=== PATIENT | male | born 1940 | race Caucasian/White ===

== ENCOUNTER 2019-10-27 15:48 | Emergency (ER) | payer MEDICARE, MEDICAID ==
[~2019-10-27] VITALS: Ht 170.2 cm; Wt 81.8 kg
[2019-10-27 17:55] LABS: BASOPHILS # (AUTO) 0.1 X10'3 (0-0.2); EOSINOPHILS # (AUTO) 0.3 X10'3 (0-0.9); EOSINOPHILS % (AUTO) 2.6 % (0-6); HEMATOCRIT 39.8 % (42.0-52.0); HEMOGLOBIN 13.2 g/dl (14.0-17.9); LYMPHOCYTES # (AUTO) 1.8 X10'3 (1.1-4.8); LYMPHOCYTES % (AUTO) 16.3 % (21-51); MEAN CORPUSCULAR HEMOGLOBIN 32.1 PG (27.0-31.0); MEAN CORPUSCULAR HGB CONC 33.3 g/dL (33.0-36.5); MEAN CORPUSCULAR VOLUME 96.3 FL (78-98); MEAN PLATELET VOLUME 8.1 FL (7.4-10.4); MONOCYTES # (AUTO) 0.7 X10'3 (0-0.9); MONOCYTES % (AUTO) 6.6 % (2-12); NEUTROPHILS % (AUTO) 73.5 % (42-75); PLATELET COUNT 248 X10'3 (140-440); RED BLOOD COUNT 4.13 X10'6 (4.70-6.10); RED CELL DISTRIBUTION WIDTH 12.8 % (11.5-14.5); WHITE BLOOD COUNT 10.9 X10'3 (4.5-11.0)
[2019-10-27 18:16] LABS: ALANINE AMINOTRANSFERASE 49 U/L (12-78); ALBUMIN 3.6 G/DL (3.4-5.0); ALBUMIN/GLOBULIN RATIO 0.9 (1.1-1.5); ALKALINE PHOSPHATASE 79 IU/L (46-116); ANION GAP 12 (8-16); ASPARTATE AMINO TRANSFERASE 31 U/L (10-37); BILIRUBIN,TOTAL 0.3 MG/DL (0.1-1.0); BLOOD UREA NITROGEN 17 MG/DL (7-18); BUN/CREATININE RATIO 16.8 (5.4-32.0); C-REACTIVE PROTEIN 1.65 MG/DL (0.0-0.5); CHLORIDE 104 MMOL/L (99-107); CREATININE 1.01 MG/DL (0.60-1.10); GLUCOSE 140 MG/DL (70-104); LACTATE DEHYDROGENASE 160 U/L (85-227); POTASSIUM 4.2 MMOL/L (3.5-5.1); SODIUM 141 MMOL/L (135-145); TOTAL CARBON DIOXIDE 25.2 MMOL/L (24-32); TOTAL PROTEIN 7.4 G/DL (6.4-8.2); eGFR 71 ML/MIN
[2019-10-27 19:29] LABS: CLARITY,URINE CLOUDY (Clear); COLOR,URINE YELLOW (Yellow); GLUCOSE, URINE NEGATIVE (Neg); KETONES,URINE 15 mg/dl (Neg); LEUKOCYTE ESTERASE ,URINE SMALL (Neg); NITRITES, URINE POSITIVE (Neg); OCCULT BLOOD,URINE LARGE (Neg); PROTEIN,URINE TRACE mg/dl (Neg); UROBILINOGEN,URINE 0.2 E.U/dL (0.2-1.0)
[2019-10-27 19:30] LABS: UA COLLECTION TYPE FOLEY CATH
[2019-10-27 19:34] LABS: BACTERIA,URINE 4+ /HPF (Neg); RBC,URINE 20-50 /HPF (0-2); SQUAMOUS EPITHELIAL CELL,UR FEW /LPF (FEW); WBC,URINE 50-100 /HPF (0-4)
[2019-10-27 21:17] VITALS: BP 170/84
== END 2019-10-27 21:05 | disposition home or self-care (01) ==
LOC: ER 15:48
DX: S31.20XA Unspecified open wound of penis, initial encounter (principal); N36.0 Urethral fistula; E11.65 Type 2 diabetes mellitus with hyperglycemia; R22.9 Localized swelling, mass and lump, unspecified; I10 Essential (primary) hypertension; X58.XXXA Exposure to other specified factors, initial encounter; Y93.89 Activity, other specified; Y92.89 Other specified places as the place of occurrence of the external cause; Y99.8 Other external cause status
CPT/HCPCS: 36415; 51702; 80053; 81001; 83605; 83615; 85025; 85651; 86140; 99285

== ENCOUNTER 2019-11-06 12:48 | Emergency (ER) | payer MEDICARE, MEDICAID ==
[~2019-11-06] VITALS: Ht 177.8 cm; Wt 81.8 kg
--- NOTE | 2019-11-06 14:29 | NUR ---
pt bladder scanned [address] almanzar as per md omar drake working on guide wire and catheter.
--- NOTE | 2019-11-06 16:16 | NUR ---
pt waiting for the dr as dr almanzar was busy with the code .
[2019-11-06 18:38] VITALS: BP 162/82
== END 2019-11-06 18:52 | disposition home or self-care (01) ==
LOC: ER 12:49
DX: T83.9XXA Unspecified complication of genitourinary prosthetic device, implant and graft, initial encounter (principal); I10 Essential (primary) hypertension; E11.9 Type 2 diabetes mellitus without complications
CPT/HCPCS: 51702; 99284; 99285

== ENCOUNTER 2019-11-19 08:54 | Emergency (ER) | payer MEDICARE, MEDICAID ==
[~2019-11-19] VITALS: Ht 175.3 cm; Wt 82.0 kg
[2019-11-19 10:49] VITALS: BP 164/78
--- NOTE | 2019-11-19 10:50 | NUR ---
sarah irragated with 50ml NS. able to drain 500ml urine out of sarah after.
== END 2019-11-19 11:16 | disposition home or self-care (01) ==
LOC: ER 08:55
DX: T83.098A Other mechanical complication of other urinary catheter, initial encounter (principal); I10 Essential (primary) hypertension; E11.9 Type 2 diabetes mellitus without complications; Z60.2 Problems related to living alone
CPT/HCPCS: 51700; 99284

== ENCOUNTER 2019-11-19 18:37 | Emergency (ER) | payer MEDICARE, MEDICAID ==
[~2019-11-19] VITALS: Ht 175.3 cm; Wt 81.8 kg
[2019-11-19 18:44] VITALS: BP 198/60
--- NOTE | 2019-11-19 19:12 | NUR ---
Dr. carroll was made aware of the issue of patient's "clogged" indwelling catheter. agreed to see patient in ED 2
--- NOTE | 2019-11-19 19:38 | NUR ---
Per Dr. humphreys. prexisting sarah was flushed with a return of sediment and approx 500 ml of urine.
== END 2019-11-19 19:49 | disposition home or self-care (01) ==
LOC: ER 18:37
DX: L98.498 Non-pressure chronic ulcer of skin of other sites with other specified severity (principal); R33.9 Retention of urine, unspecified; R22.9 Localized swelling, mass and lump, unspecified; G82.20 Paraplegia, unspecified; I10 Essential (primary) hypertension; E11.9 Type 2 diabetes mellitus without complications; Z60.2 Problems related to living alone
CPT/HCPCS: 51702; 99284

== ENCOUNTER 2019-11-24 06:04 | Emergency (ER) | payer MEDICARE, MEDICAID ==
[~2019-11-24] VITALS: Ht 175.3 cm; Wt 85.0 kg
--- NOTE | 2019-11-24 07:15 | NUR ---
unable to irrigate f/c, dr zarco made aware. consulted with dr. humphreys and gave orders to change out f/c.
[2019-11-24 08:49] LABS: CLARITY,URINE CLEAR (Clear); COLOR,URINE STRAW (Yellow); GLUCOSE, URINE NEGATIVE (Neg); KETONES,URINE NEGATIVE (Neg); LEUKOCYTE ESTERASE ,URINE SMALL (Neg); NITRITES, URINE NEGATIVE (Neg); OCCULT BLOOD,URINE SMALL (Neg); PROTEIN,URINE 100 mg/dl (Neg); UROBILINOGEN,URINE 0.2 E.U/dL (0.2-1.0)
[2019-11-24 08:50] LABS: UA COLLECTION TYPE STRAIGHT CATH
[2019-11-24 08:56] LABS: BACTERIA,URINE 2+ /HPF (Neg); RBC,URINE 0-2 /HPF (0-2); SQUAMOUS EPITHELIAL CELL,UR FEW /LPF (FEW)
[2019-11-24] MEDS ORDERED: CefTRIAXone 1000mg IM Kit (w/lidocaine diluent) IM ONE (09:50)
--- NOTE | 2019-11-24 09:50 | NUR ---
PT AWARE OF URINE OUTPUT OF AROUND 450ML. THE PT STATES THAT THAT IS A LARGE AMOUNT FOR HIM. PT DRESSED AND HELPED INTO HIS WHEELCHAIR. MD AWARE OF BLADDER SCANNER RESULTS. PT STATES HE IS READY TO GO HOME.
[2019-11-24] MEDS ORDERED: CEPH250T PO (09:54)
[2019-11-24 10:08] VITALS: BP 157/72
== END 2019-11-24 10:24 | disposition home or self-care (01) ==
LOC: ER 06:05
DX: T83.098A Other mechanical complication of other urinary catheter, initial encounter (principal); N13.9 Obstructive and reflux uropathy, unspecified; N39.0 Urinary tract infection, site not specified; G82.20 Paraplegia, unspecified; I10 Essential (primary) hypertension; E11.9 Type 2 diabetes mellitus without complications; Z60.2 Problems related to living alone; Z79.2 Long term (current) use of antibiotics; Y84.6 Urinary catheterization as the cause of abnormal reaction of the patient, or of later complication, without mention of misadventure at the time of the procedure; Y92.89 Other specified places as the place of occurrence of the external cause
CPT/HCPCS: 51702; 81001; 87077; 87088; 87186; 96372; 99284; J0696

== ENCOUNTER 2019-12-19 03:56 | Emergency (ER) | payer MEDICARE, MEDICAID ==
[~2019-12-19] VITALS: Ht 175.3 cm; Wt 79.5 kg
[2019-12-19] MEDS ORDERED: LIDOcaine 2% 10ml TOPICAL JELLY (Urojet) TP ONE (04:05)
[2019-12-19 04:38] VITALS: BP 156/60
--- NOTE | 2019-12-19 04:45 | NUR ---
PT TOLERATED RAO CATH REMOVAL AND REPLACEMENT WELL. NEW RAO DRAINING CLEAR, YELLOW URINE TO GRAVITY. PT HAD PURULENT DRAINAGE FROM PENILE SITE THAT WAS EVALUATED BY ED MD CHANG- HE IS OK FOR PT TO BE D/C.
== END 2019-12-19 04:41 | disposition home or self-care (01) ==
LOC: ER 03:57
DX: T83.098A Other mechanical complication of other urinary catheter, initial encounter (principal); I10 Essential (primary) hypertension; E11.9 Type 2 diabetes mellitus without complications; Y92.89 Other specified places as the place of occurrence of the external cause
CPT/HCPCS: 51702; 99284

== ENCOUNTER 2020-01-22 06:14 | Emergency (ER) | payer MEDICARE, MEDICAID ==
[~2020-01-22] VITALS: Ht 175.3 cm; Wt 81.8 kg
[2020-01-22] MEDS ORDERED: magnesium 2GM in 50ml NS 50 ML IV ONE (06:25)
--- NOTE | 2020-01-22 09:17 | NUR ---
Suprapubic catheter flushed with 40ml NS. No resistance noted. elizabeth clementmr Addendum: 01/22/20 at 0918 by JEANNA elizabeth zarco informed.
[2020-01-22 10:11] VITALS: BP 180/70
== END 2020-01-22 10:35 | disposition home or self-care (01) ==
LOC: ER 06:15
DX: T83.018A Breakdown (mechanical) of other urinary catheter, initial encounter (principal); G82.20 Paraplegia, unspecified; I10 Essential (primary) hypertension; E11.9 Type 2 diabetes mellitus without complications; Z60.2 Problems related to living alone; Y84.6 Urinary catheterization as the cause of abnormal reaction of the patient, or of later complication, without mention of misadventure at the time of the procedure; Y92.89 Other specified places as the place of occurrence of the external cause
CPT/HCPCS: 99284